=== PATIENT | male | born 1980 | race Caucasian/White ===

== ENCOUNTER 2025-06-25 00:50 | Emergency (ER) | payer BC, SELFPAY ==
--- NOTE | 2025-06-25 00:58 | ED.ABDPAIN ---
HPI - Abdominal Pain General Chief Complaint: Abdominal Pain Stated Complaint: Poss H. pylori, N, V, pain, poss ulcers Time Seen by Provider: 06/25/25 00:57 History of Present Illness HPI narrative: 44-year-old gentleman presents with several weeks of epigastric pain on radiating worse at night while lying down does have a history of GERD for which he did take Nexium and Tums tonight with no significant relief of his symptoms. Patient denies any active chest pain, diaphoresis, nausea, vomiting, diarrhea, constipation, rectal bleeding, shortness of breath, urinary complaints. Other than what is stated 14 point review of system is negative. Related Data Home Medications ?Medication ?Instructions ?Recorded ?Confirmed No Known Home Medications 06/25/25 06/25/25 Allergies Allergy/AdvReac Type Severity Reaction Status Date / Time No Known Drug Allergies Allergy Verified 06/25/25 01:00 Review of Systems Review of Systems ROS Unobtainable: All systems reviewed & are unremarkable except as noted in HPI and below Exam Narrative Exam Narrative: GENERAL: [44] year old patient appears stated age. Well-developed patient, in mild distress. HEAD: Atraumatic. Normocephalic. EYES: Pupils equal round and reactive. Extraocular motions intact. No scleral icterus. No injection or drainage. NECK: Trachea midline. Non tender CARDIOVASCULAR: Regular rate and rhythm without murmurs, gallops, or rubs. RESPIRATORY: Clear to auscultation. Breath sounds equal bilaterally. No wheezes, rales, or rhonchi. GASTROINTESTINAL: Abdomen soft, non-tender, nondistended. EXTREMITIES: No edema or joint tenderness. BACK: Nontender without deformity or crepitance. No flank tenderness. NEURO: AOx3. 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 Pt given LR 1L bolus and protonix IV. WBC 4.5 hg 16 Plt 158 Sodium 143 K 3.7 Cl 104 C02 29 BUN 18 Cr 1.06 glu [address] scan increased attenuation of the mesenteric root fat and borderline enlarged mesenteric root lymph nodes raises the possibility of mesenteric panniculitis age indeterminate. Cholelithiasis no biliary obstruction. Bilateral renal stones no urinary tract obstruction. Differential diagnosis cholecystitis pancreatitis small-bowel obstruction diverticulitis. Discharge Plan Departure Patient Disposition: Home Clinical Impression: Gallstone Instructions: DI for Gallstones Activity Restrictions/Additional Instructions: Return with new or worsening symptoms. Clear liquid diet advance as tolerated. Please get established with PCP for continuity of care. Prescriptions: No Action No Known Home Medications Stand Alone Forms: Patient Portal/API
[2025-06-25 01:00] VITALS: BP 147/94; PULSE 70; RESP 16; TEMP 37; O2SAT 100; BMI 25.7
--- NOTE | 2025-06-25 01:12 | DI.CT.S_ITS ---
PROCEDURE: CT ABDOMEN PELVIS W CON INDICATIONS: abd pain TECHNIQUE: After the administration of intravenous contrast, axial sections acquired from the lung bases to the pubic symphysis. Coronal and sagittal reformats were performed. For radiation dose reduction, the following was used: automated exposure control, adjustment of mA and/or kV according to patient size. COMPARISON: None. FINDINGS: Image quality: Diagnostic. Lower Chest: No significant findings. ABDOMEN: Liver: No solid mass. Gallbladder: Mildly distended gallbladder, nonspecific. Gallstones. No gallbladder wall thickening. Biliary ducts: No biliary dilation. Pancreas: No ductal dilation. Spleen: Size is within normal limits. Adrenal Glands: No adrenal nodules. Kidneys and Ureters: No hydronephrosis. No solid mass. No complex renal cystic lesion which requires follow up. Bilateral nonobstructing renal stones. Stomach and Bowel: Normal colonic caliber, without significant wall thickening. Normal appendix. Peritoneum: No abnormal intraperitoneal fluid. No free air. Ventral Wall: No significant ventral hernia. Abdominal Nodes: No retroperitoneal or mesenteric adenopathy by size criteria. Vessels: Aorta and inferior vena cava are normal in size. PELVIS: Pelvic Organs: Unremarkable. Bladder: No bladder wall thickening, accounting for underdistention. Pelvic Nodes: No enlarged lymph nodes. Miscellaneous: No inguinal hernias are seen. Bones: No aggressive osseous abnormality. Bilateral L5 pars defects. Trace anterolisthesis. IMPRESSION: 1. Cholelithiasis. 2. Nephrolithiasis. No obstructing stone. 3. Normal appendix. 4. Incidental note made of bilateral L5 pars defects with trace anterolisthesis. Dictated by: Kaushal Jara M.D. on 06/25/2025 at 7:44 Approved by: Kaushal Jara M.D. on 06/25/2025 at 7:48
--- NOTE | 2025-06-25 01:20 | EKG_ITS ---
[facility] [address] [place] [address] Test Date: 2025-06-25 Pat Name: Xu Sanchez Department: [facility] Room: Gender: Male Talend Etl Developer: BARON : 1980 Requested By: Order Number: [id number] Reading MD: Tree Deutsch MD Measurements Intervals [place] Rate: 61 P: 36 MD: 168 QRS: 29 QRSD: 98 T: 30 QT: 422 QTc: 424 Interpretive Statements Normal sinus rhythm Electronically Signed On 06-25-2025 7:28:31 PST by Tree Deutsch MD
[2025-06-25 01:22] LABS: Add Manual Diff / Slide Review NO; Hematocrit 46.7 % (41-53); Hemoglobin 16.0 g/dL (13.5-17.5); Lymphocytes Absolute Auto 1800 /uL (1100-4500); Mean Corpuscular HGB Conc 34.3 % (30-36); Mean Corpuscular Hemoglobin 30.0 PG (26-34); Mean Corpuscular Volume 87.4 fL (80-100); Platelet Count 158 X10^3/uL (150-400)
[2025-06-25] MEDS: LACTATED RINGERS 1,000 ML 1000 ML IV (01:24)
[2025-06-25] MEDS: PANTOPRAZOLE 40 MG VIAL IV (01:24)
[2025-06-25 01:33] LABS: Alanine Aminotransferase 23 IU/L (<50); Albumin 5.0 g/dL (3.5-5.0); Albumin Globulin Ratio 1.4 (1.0-2.8); Alkaline Phosphatase 58 U/L (38-126); Blood Urea Nitrogen 18 mg/dL (9-20); Calcium 9.5 mg/dL (8.4-10.2); Carbon Dioxide 29 mmol/L (22-32); Chloride 104 mmol/L (98-107); Estimated Glomerular Filt Rate > 60 mL/min (>60); Globulin 3.6 g/dL (1.7-4.1); Glucose 113 mg/dL (70-99); HEMOLYSIS 20 (0-50); Lipase 109 U/L (23-300); Potassium 3.7 mmol/L (3.4-5.1); Sodium 143 mmol/L (137-145); Total Protein 8.6 g/dL (6.3-8.2)
[2025-06-25 01:45] LABS: Troponin I < 0.012 ng/mL (0.01-0.034)
[2025-06-25 03:03] VITALS: BP 121/77; PULSE 57; RESP 18; O2SAT 96
== END 2025-06-25 03:46 | disposition home or self-care (01) ==
PROVIDERS: Emergency Provider Family Medicine
DX: K80.20 Calculus of gallbladder without cholecystitis without obstruction (principal); R10.13 Epigastric pain
CPT/HCPCS: 36415; 74177; 80053; 81003; 83690; 84484; 85025; 93005; 93010; 96365; 96375; 99284; J2470; J7120; Q9967

== ENCOUNTER 2025-06-26 03:27 | Observation (INO) | payer BC, SELFPAY ==
[2025-06-26] VITALS (18 sets, daily range): BP systolic 116–155; BP diastolic 57–93; PULSE 57–85; RESP 11–21; TEMP 36.3–36.8; O2SAT 97–100; BMI 25.7
--- NOTE | 2025-06-26 03:29 | ED_ITS ---
HPI - Abdominal Pain General Chief Complaint: Abdominal Pain Stated Complaint: gallstone- severe pain Time Seen by Provider: 06/26/25 03:28 Source: patient, RN notes reviewed and old records reviewed Mode of arrival: Ambulatory Limitations: no limitations History of Present Illness HPI narrative: 44-year-old male seen yesterday found to have gallstone, nephrolithiasis presents with complaint of epigastric pain. Patient states he has been having issues on and off for the past 3 weeks. Patient states typically it is at nighttime he will have epigastric pain and nausea and vomiting. He states pain does not really seem to radiate anywhere else. He has not had fevers that he is aware of. He does feel a bit sweaty this evening. He states pain was considerably more intense prior to arrival at 8/10 he states started to improve in his now 08/17. He denies any flank or back pain. No chest pain or shortness of breath. He denies any diarrhea or constipation, no urinary symptoms. No rash or skin changes. States he does not take any daily medications. Denies any prior surgeries. No known drug allergies. No tobacco, occasional alcohol, denies any recreational drugs. Patient has a acetaminophen earlier this evening but the states he thinks he threw it up. Patient was seen here yesterday 06/25/[address] abdomen pelvis and labs which did show gallstones, nephrolithiasis, normal appendix and bilateral L5 pars defects with trace anterolisthesis. Related Data Home Medications ?Medication ?Instructions ?Recorded ?Confirmed No Known Home Medications 06/25/2506/07 Allergies Allergy/AdvReac Type Severity Reaction Status Date / Time No Known Drug Allergies Allergy Verified 06/25/25 01:00 Review of Systems Review of Systems ROS Unobtainable: All systems reviewed & are unremarkable except as noted in HPI and below Exam Narrative Exam Narrative: GENERAL: Alert and oriented x three, mild distress HEENT: Head normocephalic, atraumatic, EOMI, pupils reactive, face symmetric, moist mucous membranes NECK: Supple, full range of motion CARDIOVASCULAR: Regular rate and rhythm without murmurs, rubs or gallops. RESPIRATORY: Breath sounds equal bilaterally, no wheezes rales or rhonchi. ABDOMEN: Soft, nontender. Nondistended. Normoactive bowel sounds all 4 quadrants. No guarding or rebound, rigidity, no mass : No CVA tenderness EXTREMITIES: Normal range of motion, no clubbing or edema. Neurovascularly intact NEUROLOGICAL: Cranial nerves II through XII grossly intact. Moving all extremities SKIN: Warm, dry, no petechiae, no rashes or lesions. Initial Vital Signs Initial Vital Signs: Vital Signs Pulse Rate 77 06/26/25 03:33 Pulse Oximetry 99 06/26/25 03:33 Course Orders Ordered: ED Orders 06/26/25 03:37 US abdomen limited Stat 06/26/25 03:45 CBC Auto Diff [Complete Blood Count AUTO DIFF] Stat CMP [Comprehensive Metabolic Panel] Stat Lipase Stat Discontinued Medications Ondansetron HCl (Ondansetron 4 Mg/2 Ml Inj) 4 mg IV NOW ONE Stop: 06/26/25 03:38 Last Admin: 06/26/25 03:43 Dose: 4 mg Documented By: LEIDA Vital Signs Vital signs: Vital Signs - 8 hr 06/26/25 03:33 06/26/25 03:36 06/26/25 03:37 Temperature 97.7 F Pulse Rate 77 69 74 Respiratory Rate 18 Blood Pressure Pulse Oximetry 99 99 99 Oxygen Delivery Method Room Air 06/26/25 03:42 Temperature 97.7 F Pulse Rate Respiratory Rate Blood Pressure 136/81 Pulse Oximetry Oxygen Delivery Method MDM - Abdominal Pain Lab Data 06/26/25 03:45 06/26/25 03:45 Labs: Lab Results 06/26/25 Range/Units 03:45 WBC 4.7 (4.5-11.0) X10^3/uL RBC 5.07 (4.5-5.9) X10^6/uL Hgb 15.4 (13.5-17.5) g/dL Hct 44.5 (41-53) % MCV 87.6 (80-100) fL MCH 30.3 (26-34) PG MCHC 34.6 (30-36) % RDW 12.8 (11.6-14.8) % Plt Count 171 (150-400) X10^3/uL Neut % (Auto) 48.4 L (50-75) % Lymph % (Auto) 40.3 H (25-40) % [place] % (Auto) 8.3 (3-14) % Eos % (Auto) 2.0 (2-4) % Baso % (Auto) 1.0 (0-2) % Neut # (Auto) 2300 (3793-7446) /uL Lymph # (Auto) 1900 (0956-7368) /uL [place] # (Auto) 400 (0-900) /uL Eos # (Auto) 100 (0-450) /uL Baso # (Auto) 0 (0-100) /uL Sodium 142 (137-145) mmol/L Potassium 3.6 (3.4-5.1) mmol/L Chloride 104 (98-107) mmol/L Carbon Dioxide 27 (22-32) mmol/L BUN 15 (9-20) mg/dL Creatinine 1.05 (0.66-1.25) mg/dL Estimated GFR > 60 (>60) mL/min BUN/Creatinine Ratio 14.3 (6-22) Glucose 111 H (70-99) mg/dL Calcium 9.4 (8.4-10.2) mg/dL Total Bilirubin 0.6 (0.2-1.3) mg/dL AST 26 (17-59) IU/L ALT 21 (<50) IU/L Alkaline Phosphatase 63 (38-126) U/L Total Protein 8.5 H (6.3-8.2) g/dL Albumin 5.0 (3.5-5.0) g/dL Globulin 3.5 (1.7-4.1) g/dL Albumin/Globulin Ratio 1.4 (1.0-2.8) Lipase 148 (23-300) U/L [facility] Narrative Medical decision making narrative: 44-year-old man with known history of gallstones presents with similar symptoms as yesterday's visit. He states he has had symptoms on and off for about 3 weeks typically with nausea or vomiting and typically at nighttime. Patient states pain that has started to improve but it is still present. Labs, normal white count, hemoglobin and platelets predominance of lymphocytes. Chemistries are appropriate creatinine is 1.05 glucose is 111 LFTs are normal. Lipase is 148. Ultrasound abdominal limited, gallbladder sludge with a mobile nonmobile stones. No glottic bladder wall thickening equivocal pericholecystic fluid no sonographic De La Cruz's sign. No biliary dilation. Liver is normal size and echotexture. Main portal vein anterior grade. Patient had Zofran On recheck patient is feeling improved. Last solids were 5:30 p.m. 06/25/2025, last liquids were before 3:30am. Spoke with Dr. Hernandez, general surgery @ [phone]. Accepts for observation with plan for the OR today. NPO, fluids. Does not require antibiotics. Discharge Plan Departure Patient Disposition: Admitted to Surgery Clinical Impression: Cholelithiasis, Nausea & vomiting Admit Date/Time: 06/26/25 05:52 Admit Provider: Philipp Hernandez
--- NOTE | 2025-06-26 03:37 | DI.US.S_ITS ---
PROCEDURE: US ABDOMEN LIMITED INDICATIONS: recurrent epigastric pain, n/v, known gallstones TECHNIQUE: Real-time scanning was performed of the abdominal and retroperitoneal organs, with image documentation. COMPARISON: [facility], CT, CT ABDOMEN PELVIS W CON, 06/25/2025, 1:50. FINDINGS: Liver: Liver is normal in size and homogeneous in echotexture. Gallbladder: Sludge material and stones are noted in dependent portion of gallbladder lumen. No gallbladder wall thickening or pericholecystic fluid. No sonographic De La Cruz sign. Biliary ducts: Intrahepatic bile ducts are non-dilated. Extrahepatic bile duct caliber measures 3 mm. Normal is 6-7 mm or less in diameter, or 10 mm or less post-cholecystectomy. Pancreas: Visualized portions of the pancreas are sonographically normal. Miscellaneous: No free abdominal fluid. No gross abnormality is seen in visualized portion of pancreas. IMPRESSION: 1. Cholelithiasis without sonographic evidence of acute cholecystitis. No biliary ductal dilatation. 2. Rest of the exam is unremarkable. Dictated by: Bob Butcher M.D. on 06/26/2025 at 8:21 Approved by: Bob Butcher M.D. on 06/26/2025 at 8:23
[2025-06-26] MEDS: ONDANSETRON 4 MG/2 ML INJ IV ×2 (03:43→10:51)
[2025-06-26 03:54] LABS: Add Manual Diff / Slide Review NO; Hematocrit 44.5 % (41-53); Hemoglobin 15.4 g/dL (13.5-17.5); Lymphocytes Absolute Auto 1900 /uL (1100-4500); Mean Corpuscular HGB Conc 34.6 % (30-36); Mean Corpuscular Hemoglobin 30.3 PG (26-34); Mean Corpuscular Volume 87.6 fL (80-100); Platelet Count 171 X10^3/uL (150-400)
--- OUTSIDE RECORDS SUMMARY | 2025-06-26 03:55 | XMS_ITS | Encounter Summary ---
Author Organization [facility] Health Address [address] [place] [address] Care Team Providers Care Data Capture Clerk Name Role Phone Unavailable Primary Care Provider Unavailabl e Prior Encounters Date Type Department Care Team Description 08/28/2022 9:15 AM [facility] Office Visit [facility] [address] [place] [address] Ousmane Jarquin DDS Last Filed Vital Signs Vital Sign Reading Time Taken Comments Blood Pressure 112/65 08/28/2022 9:19 AM MST Pulse 79 08/28/2022 9:19 AM MST Temperature - - Respiratory Rate - - Oxygen Saturation - - Inhaled Oxygen Concentration - - Weight - - Height - - Body Mass Index - - Plan of Treatment Not on file Procedures Procedure Name Priority Date/Time Associated Diagnosis Comments 18 CLINICAL CROWN LENGTHENING HARD TISSUE Routine 08/28/2022 9:15 AM MST NC X-RAY Routine 08/28/2022 9:15 AM MST 18 CEMENT CROWN Routine 08/28/2022 9:15 AM MST 18 CERECFIRED CROWNPOST Routine 08/28/19 9:15 AM MST 18 POST AND CORE IN ADDITION TO CROWN, INDIRECTLY FABRICATED Routine 08/28/2022 9:15 AM MST 15 CEMENT CROWN Routine 08/28/2022 9:15 AM MST 15 CORE BUILDUP, INCLUDING ANY PINS WHEN REQUIRED Routine 08/28/2022 9:15 AM MST NC X-RAY Routine 08/28/2022 9:15 AM MST 15 CERECFIRED CROWNPOST Routine 08/28/19 9:15 AM MST PANORAMIC RADIOGRAPHIC IMAGE Routine 08/28/2022 9:15 AM MST BITEWING - SINGLE RADIOGRAPHIC IMAGE Routine 08/28/2022 9:15 AM MST SINGLE X-RAY Routine 08/28/2022 9:15 AM MST LIMITED ORAL EVALUATION - PROBLEM FOCUSED Routine 08/28/2022 9:15 AM MST ADDITIONAL X-RAY Routine 08/28/2022 9:15 AM [facility] Visit Diagnoses Not on file
[2025-06-26 04:02] LABS: Alanine Aminotransferase 21 IU/L (<50); Albumin 5.0 g/dL (3.5-5.0); Albumin Globulin Ratio 1.4 (1.0-2.8); Alkaline Phosphatase 63 U/L (38-126); Blood Urea Nitrogen 15 mg/dL (9-20); Calcium 9.4 mg/dL (8.4-10.2); Carbon Dioxide 27 mmol/L (22-32); Chloride 104 mmol/L (98-107); Estimated Glomerular Filt Rate > 60 mL/min (>60); Globulin 3.5 g/dL (1.7-4.1); Glucose 111 mg/dL (70-99); HEMOLYSIS < 15 (0-50); Lipase 148 U/L (23-300); Potassium 3.6 mmol/L (3.4-5.1); Sodium 142 mmol/L (137-145); Total Protein 8.5 g/dL (6.3-8.2)
--- NOTE | 2025-06-26 08:53 | CM.DANOTE ---
Initial DCP Assessment Note. Review EMR and PT Interview. Met with patient at bedside to discuss discharge needs.PT is alert x 4 sitting up in bed. No acute distress. Independent. Friend, Hien, can transport home. [phone] Payor:??[employer] PCP: None. New to the area. [facility] Info provided. Summary & Plan:?44 y/o male arrived to ED via POV c/o abd pain. Admitted OBS. Plan: Gall Bladder surgery today. Possible discharge home alter today. Discharge Planning/Care Management CM Discharge Assessment Start: 06/26/25 06:21 Freq: Status: Active Protocol: Document 06/26/25 08:51 (Rec: 06/26/25 08:53 [id number]) Discharge Planning Assessment Assigned Discharge Maritza Whitmore RN CM Software Quality Assurance Specialist Provider None Insurance Other (enter in Comment) Insurance Comment [employer] Out of state Advance Directives? No History Provided By Patient Has Patient been No admitted in last 30 days? Prior Living House Arrangements Household Members friend(s) Type of Drives own vehicle transporation used prior to admit Independent with ADL Yes 's Is patient alert and Yes oriented? Caregiver for No Another Transportation Friend Hien [phone] Arrangement Referrals Initiated None needed Review Status In Process Please Provide Date 06/26/25 Initial DC Assessment Was Performed Next Review Type Continued Stay Review
--- NOTE | 2025-06-26 08:53 | PM.HP.IH.1 ---
History of Present Illness History of Present Illness Date Patient Seen: 06/26/25 Time Patient Seen: 08:53 Chief complaint: gallstone- severe pain Narrative: Xu is a 44-year-old man who presented to the emergency room with epigastric abdominal pain twice within the past week. He has been having this pain for about 3 weeks. He had an ultrasound and a CT scan showing gallstones. His labs are normal. No prior abdominal surgery. No major medical problems. [facility] Social History household members: friend(s) Smoking Status: Never smoker alcohol intake: current Meds Home Medications and Allergies Home Medications ?Medication ?Instructions ?Recorded ?Confirmed ?Type No Known Home Medications 06/25/25 06/26/25 History Allergies Allergy/AdvReac Type Severity Reaction Status Date / Time No Known Drug Allergies Allergy Verified 06/25/25 01:00 Exam Vital Signs (past 8 hours): - 06/26/25 03:33 06/26/25 03:36 06/26/25 03:37 Temperature 97.7 F Pulse Rate 77 69 74 Respiratory Rate 18 Blood Pressure Pulse Oximetry 99 99 99 Oxygen Delivery Method Room Air 06/26/25 03:42 06/26/25 06:11 06/26/25 06:22 Temperature 97.7 F 97.7 F Pulse Rate 58 L 58 L Respiratory Rate 18 16 Blood Pressure 136/81 125/75 133/79 Pulse Oximetry 97 100 Oxygen Delivery Method Room Air 06/26/25 07:00 Temperature Pulse Rate Respiratory Rate Blood Pressure Pulse Oximetry Oxygen Delivery Method Room Air Oxygen Delivery Method Room Air Narrative Exam Narrative: Abdomen is soft, nontender No De La Cruz sign Objective Labs 06/26/25 03:45 06/26/25 03:45 Labs: Laboratory Results - last 24 hr 06/26/25 03:45 WBC 4.7 RBC 5.07 Hgb 15.4 Hct 44.5 MCV 87.6 MCH 30.3 MCHC 34.6 RDW 12.8 Plt Count 171 Neut % (Auto) 48.4 L Lymph % (Auto) 40.3 H [place] % (Auto) 8.3 Eos % (Auto) 2.0 Baso % (Auto) 1.0 Neut # (Auto) 2300 Lymph # (Auto) 1900 [place] # (Auto) 400 Eos # (Auto) 100 Baso # (Auto) 0 Sodium 142 Potassium 3.6 Chloride 104 Carbon Dioxide 27 BUN 15 Creatinine 1.05 Estimated GFR > 60 BUN/Creatinine Ratio 14.3 Glucose 111 H Calcium 9.4 Total Bilirubin 0.6 AST 26 ALT 21 Alkaline Phosphatase 63 Total Protein 8.5 H Albumin 5.0 Globulin 3.5 Albumin/Globulin Ratio 1.4 Lipase 148 Assessment & Plan Assessment and plan (1) Cholelithiasis: Qualifiers: Cholelithiasis location: gallbladder Cholecystitis presence: without cholecystitis Biliary obstruction: without biliary obstruction Qualified Code(s): K80.20 - Calculus of gallbladder without cholecystitis without obstruction Status: Acute Plan I recommended a laparoscopic cholecystectomy for symptomatic cholelithiasis. He would like to proceed. Time-Based Coding :: [TOTAL MINUTES] spent with patient and on the chart (including review of chart, obtaining history, exam, reviewing outside data, placing orders, documenting exam and treatment plan, and counseling patient) on [DATE]. [employer]EE Personal Investment Adviser Document charge(s): No
[2025-06-26] MEDS: LACTATED RINGERS 1,000 ML 42 ML IV ×2 (09:02→10:44)
--- NOTE | 2025-06-26 09:31 | SUR.OPER ---
Supine on padded OR bed, head on pillow, safety belt at thigh, left arm padded and tucked at side. Right arm secured on padded arm board <90 degrees abduction. Legs uncrossed. Padded footboard in place. Tape over blanket to secure lower legs. Final positioning approved by provider
--- NOTE | 2025-06-26 10:15 | PM.OP.1 ---
Operative Date/Time/Diagnoses Date of procedure: 06/26/25 Time of procedure: 10:15 Pre-op diagnosis: Symptomatic cholelithiasis Post-op diagnosis: same Procedure & Clinicians Procedure: Laparoscopic cholecystectomy Same procedure(s) as scheduled: Yes Surgeon: Philipp Hernandez Assisted?: No Anesthesia Type: General Operative Notes Findings: . Applied: none Estimated Blood Loss (mL): 40 Procedure in detail: The patient was given preoperative antibiotics. The patient was brought to the operating room and placed on the table in the supine position. General endotracheal anesthesia was induced. The abdomen was prepped and draped. A time-out was performed. We made a 1 cm infraumbilical incision. We dissected down to the base of the umbilical stalk using cautery. We grasped the umbilical stalk with a Padma clamp to elevate the abdominal wall. We scored the fascia in the midline with cautery. We pierced the peritoneum with a Peon clamp. The Osmany port was placed and the abdomen was insufflated to 15 mmHg. A 5 mm 30 degree laparoscopic was inserted. There was no evidence of any injury from the entry. Next, we placed 5 mm ports in the subxiphoid position and right upper quadrant at the midclavicular line and anterior axillary line. The patient was then positioned in reverse Trendelenburg and the table was tilted to the left. The gallbladder was grasped at the dome and retracted cephalad. The gallbladder was not distended or particularly inflamed. We then dissected the cystic structures with a combination of hook cautery and blunt dissection. We obtained a critical view. We placed clips on the cystic duct and artery and divided the cystic duct and artery sharply between the clips. The gallbladder was then dissected off the liver and placed in a specimen retrieval bag. We irrigated the right upper quadrant and all the aspirate returned clear. We then removed the 5 mm ports under direct vision we removed the Osmany port. We then injected some local into the fascia and closed the fascia with 2 interrupted 0 Vicryl sutures. The skin incisions were closed with 4-0 Monocryl and Steri-Strips were applied. Band-Aids were applied over the Steri-Strips. Specimen: Gallbladder and contents Complications: none Post-operative Condition: stable Disposition: PACU
[2025-06-26] MEDS: fentaNYL 100 MCG/2 ML INJ 50 MCG IV (10:37)
--- NOTE | 2025-06-26 14:28 | PC.NURSE ---
1428 Pt tolerated general diet well, able to ambulate to bathroom and void. VSS, pain well controlled, pt expresses desire to discharge.
== END 2025-06-26 15:05 | disposition home or self-care (01) ==
LOC: ED 05:52 → AC 05:53
PROVIDERS: Admitting Provider Surgery; Emergency Provider Emergency Medicine; Visit Provider Surgery
PROC: 0FT44ZZ Resection of Gallbladder, Percutaneous Endoscopic Approach (ICD-10-PCS; CPT 47562; principal; 2025-06-26 09:00)
DX: K80.20 Calculus of gallbladder without cholecystitis without obstruction (principal)
CPT/HCPCS: 47562; 36415; 76705; 80053; 83690; 85025; 96365; 96375; 99284; G0378; J0689; J1100; J1171; J1885; J2250; J2405; J2704; J3010; J3490; J7120